=== PATIENT | female | born 1985 ===

== ENCOUNTER 2017-06-15 11:54 | Inpatient (IN) | payer OTHER ==
[~2017-06-15] VITALS: Ht 165.1 cm; Wt 88.9 kg
[~2017-06-15 11:54] MED LIST: LEUCINE; SYNTHROID50 MCG
[2017-07-14] MEDS ORDERED: PRENATAL TABLE1 EAC1 PO (22:43)
== END 2017-07-17 09:33 | disposition home or self-care (01) | DRG 775 ==
LOC: OB/GYN 07-14 22:02 → LDR 07-14 22:02 → OB/GYN 07-15 15:29 → LDR 07-16 11:54 → OB/GYN 07-17 09:33
PROC: 0KQM0ZZ Repair Perineum Muscle, Open Approach (ICD-10-PCS; principal; 2017-07-14)
PROC: 10E0XZZ Delivery of Products of Conception, External Approach (ICD-10-PCS; 2017-07-14)
PROC: 4A1HXCZ Monitoring of Products of Conception, Cardiac Rate, External Approach (ICD-10-PCS; 2017-07-14)
DX: O70.1 Second degree perineal laceration during delivery (principal); Z37.0 Single live birth; Z3A.39 39 weeks gestation of pregnancy

== ENCOUNTER 2017-07-12 10:02 | Outpatient (CLI) | payer OTHER | END 2017-07-12 10:32 | disposition home or self-care (01) | LOC: NST 10:02 | DX: Z34.02 Encounter for supervision of normal first pregnancy, second trimester (principal) ==

== ENCOUNTER 2017-07-14 21:07 | Outpatient (CLI) | payer OTHER ==
[2017-07-14] MEDS ORDERED: PRENATAL TABLE1 EAC1 PO (22:43)
== END 2017-07-14 22:02 | disposition still patient (30) ==
LOC: OBS/DEL 21:07
DX: O60.03 Preterm labor without delivery, third trimester (principal)